=== PATIENT | female | born 1955 | race Caucasian/White ===

== ENCOUNTER 2025-04-05 18:14 | Emergency (ER) | payer BC, SELFPAY ==
[2025-04-05 18:16] VITALS: BP 147/88
[2025-04-05 21:24] VITALS: BP 159/85
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
[2025-04-05] MEDS: ELIQUIS 10 MG PO (22:56)
[2025-04-05 23:09] VITALS: BP 155/82
== END 2025-04-05 23:09 | disposition home or self-care (01) ==
LOC: EMR 18:14
PROVIDERS: EMERGENCY PHYSICIAN Emergency Medicine
DX: I82.412 Acute embolism and thrombosis of left femoral vein (principal); I82.432 Acute embolism and thrombosis of left popliteal vein; I82.442 Acute embolism and thrombosis of left tibial vein; I71.9 Aortic aneurysm of unspecified site, without rupture; E78.00 Pure hypercholesterolemia, unspecified; E03.9 Hypothyroidism, unspecified
CPT/HCPCS: 99284; 93971

== ENCOUNTER 2025-04-13 03:00 | Inpatient (IN) | payer BC, SELFPAY ==
[2025-04-12 20:37] VITALS: BP 190/117
[2025-04-12 21:00] LABS: Hematocrit 36.2 % (37.0-47.0); Hemoglobin 12.1 g/dL (12.0-16.0); Mean Corp Hgb Conc. 33.4 g/dL (33.0-37.0); Mean Corpuscular Volume 93.8 fL (81.0-99.0); Nucleated Red Blood Cells % 0 %; Platelet Count 302 10^3/uL (130-400); Red Cell Dist. Width 13.2 % (11.5-14.5)
[2025-04-12 21:21] LABS: ALT (SGPT) 14 U/L (0-35); AST (SGOT) 20 U/L (14-36); Albumin 4.5 g/dl (3.5-5.0); Alkaline Phosphatase 81 U/L (38-126); Blood Urea Nitrogen 16 mg/dl (7-17); Calcium 9.7 mg/dl (8.4-10.2); Carbon Dioxide 25 mmol/L (22-30); Chloride 107 mmol/L (98-107); Glucose 118 mg/dl (70-99); Potassium 3.8 mmol/L (3.5-5.1); Sodium 138 mmol/L (135-145); Total Protein 7.2 g/dl (6.3-8.2); eGFR > 60.00
[2025-04-12 21:32] LABS: Troponin I < 0.012 ng/ml
[2025-04-12 22:02] VITALS: BP 179/104
[2025-04-12 22:08] VITALS: BMI 29.6
[2025-04-12 22:38] VITALS: BP 165/92
[2025-04-12 23:00] VITALS: BP 162/101
[2025-04-13] VITALS (11 sets, daily range): BP systolic 126–163; BP diastolic 75–94
[2025-04-13 00:41] LABS: APTT 40.6 Sec (23.4-35.0)
[2025-04-13] MEDS: HEPARIN 7100 UNITS IV (01:23)
[2025-04-13] MEDS: HEPARIN 25000 UNITS/250 ML IV ×2 (01:25→18:08)
--- NOTE | 2025-04-13 01:46 | ED.GENMED ---
History of Present Illness
General
Chief Complaint: DVT/Possible Blood Clot
Source: patient, spouse and family
Exam Limitations: none
Time Seen by Provider: 04/12/25 23:06
Nursing documentation reviewed up to this point in time: agreed with
History of Present Illness
History of Present Illness:
61-year-old female presenting to the emergency department today with concerns of worsening and ongoing discomfort to the left leg radiating into the left lower abdomen. Recently diagnosed with DVT of the left leg 7 days ago started on Eliquis.
Symptoms have been ongoing and seemingly progressive. Denies specific chest pain or shortness of breath. Did have some episodes of lightheadedness over the past few days. Denies any recent trauma surgery immobilization
Past History
Past History
ED Past Medical History: Other (Surveillance of an aortic aneurysm, hypercholesterolemia thyroid)
Social History
Tobacco: Non-smoker
Alcohol: None
Drug: None
Personal:
Living: with family
Review of Systems
Review of Systems
Allergies reviewed?: Yes
All Other Systems: ROS reviewed and negative except as documented in HPI and ROS
Phy Exam
Physical Exam
Physical Exam:
GENERAL: Alert , in no apparent distress
EYE: pupils equal and reactive
NECK: Supple, no significant adenopathy.
ENT: o/p clr, mmm.
CARDIAC: Regular rate and rhythm .
LUNGS: Clear breath sounds bilaterally, no acute respiratory distress, no wheezes/rales/rhonchi
ABDOMEN: Soft, without focal tenderness, no r/g, no cvat
NEUROLOGICAL: Alert and oriented, no focal neuro deficits
SKIN: Warm and dry, skin intact.
MUSCULOSKELETAL: Significant swelling throughout the left lower EXTR some redness discoloration to the left thigh. Dorsalis pedis and posterior tibialis pulses are palpable. Vague discomfort to the left lower quadrant of the abdomen., well
perfused.
PSYCH: Normal and appropriate interaction.
Course
Orders/Labs/Results
Orders:
Orders
04/12/25 20:37
Electrocardiogram (*1) Urgent
Reason for Study: Chest Pain
EKG- Treatment ONCE
04/12/25 20:51
Complete Blood Count/With Diff Urgent
04/12/25 20:52
Comprehensive Metabolic Panel Urgent
Troponin I Urgent
04/13/25 00:06
CT Abd/Pel (IV only)-DH only Urgent
Comment:
Reason For Exam: Left leg DVT, liam;l for abdominal ext, Venogramleg
04/13/25 00:10
Heparin 7,100 units IV NOW STA
Nursing to Place Non Medication Order As Directed
Physician Order: PTT 6 hours after initial start of Heparin infusion
04/13/25 00:15
Heparin 44202 Units/250 ml 25,000 units in 250 ml IV PER PROTOCOL
Weight to be used for heparin protocol in kilograms (kg):: 88.4
Protocol:: DVT/PE
PTT Goal Range to be used:: PTT 73 to 111 seconds
Order type:: Initial
INITIAL Infusion Dose (UNITS/KG/hr) & then follow protocol:: 18 units/kg/hr
Infusion Dose in UNITS/hr & then follow protocol (UNITS/hr):: 1,600
INFUSION RATE in mL/hr & then follow protocol (mL/hr):: 16
For DVT/PE algorithm, re-bolus for low PTT?: Yes
PTT less than or equal to 64 seconds:: Re-bolus 80 units/kg (max 10,000units). Increase by 400 units/hr
(+ 4mL/hr)
PTT 64.1 to 72.9 seconds:: Re-bolus 40 units/kg (max 5,000 units). Increase by 200 units/hr
(+ 2mL/hr)
PTT 73 to 111 seconds:: Target Range. No change in rate.
PTT 111.1 to 130.9 seconds:: Decrease rate by 200 units/hr (- 2 mL/hr)
PTT 131 to 199.9 seconds:: HOLD for 1 hr. Then decrease by 300 units/hr (- 3mL/hr)
PTT greater than or equal to 200 seconds:: HOLD for 2 hrs & Notify Provider. Then decrease by 400 units/hr
(- 4mL/hr)
Lab follow-up:: Each change, PTT q6h until 2 consecutive are therapeutic. Then
PTT daily.
04/13/25 00:22
PTT Urgent
Comment: Obtain baseline before beginning heparin infusion if not already collected
04/13/25 01:18
Heparin 7,100 units IV PRN PRN
04/13/25 01:19
Heparin 3,500 units IV PRN PRN
Abnormal Lab Results
04/12/25 04/12/25 04/13/25
20:51 20:52 00:22
RBC 3.86 L 10^6/uL
(4.20-5.40)
Hct 36.2 L %
(37.0-47.0)
MCH 31.3 H pg
(27.0-31.0)
APTT 40.6 H Sec
(23.4-35.0)
Glucose 118 H mg/dl
(70-99)
04/12/25 20:51
04/12/25 20:52
Vital Signs
Initial and Last Documented VS:
Initial Vital Signs
Temp Pulse Resp BP Pulse Ox
98.9 F 94 16 190/117 98
04/12/25 20:37 04/12/25 20:37 04/12/25 20:37 04/12/25 20:37 04/12/25 20:37
Last Documented Vital Signs
Temp Pulse Resp BP Pulse Ox
98.9 F 86 20 163/82 97
04/12/25 20:37 04/13/25 00:00 04/13/25 00:00 04/13/25 00:00 04/13/25 00:00
MDM/Problems Addressed
MDM/Problems Addressed:
69-year-old female presenting to the emergency department today with concerns of ongoing symptoms to the left lower extremity. Was diagnosed with DVT that was extensive to the left leg 1 week ago and started on Eliquis. She taking this as
prescribed. Concerning the patient's extensive DVT and ongoing worsening symptoms Case was discussed with vascular surgery recommending CT scan for further assessment. They recommended the patient be n.p.o. and started on heparin. CT venogram
does show extension of clot into the abdomen and the iliac vessels with possibility May Steel syndrome. Patient stable throughout ER stay patient will be admitted for vascular consultation.
*Pulse Oximetry
SaO2: 97
Oxygen Mode of Delivery: Room air
Patient hypoxic: no (97)
*Critical Care Note
Total Time (30-74mins, 75-104mins- exclusive of procedures): Not Applicable
ED Attending Note
-
Portions of this chart may have been created with voice recognition software.� Occasional wrong word or��sound alike� substitutions may have occurred due to the inherent limitations of voice recognition software.
Discharge Plan
Departure
Patient Disposition: Admit
Date of Disposition: 04/13/25
Time of Disposition: 01:49
Admit to: Telemetry
Admit to doctor: [place]
Presentation/result/management discussed w/ accepting MD/DO: Hospitalist
Patient with high blood pressure during this ER visit?: No
Condition: Good
Covid-19: Not Applicable
Discharge Problem:
DVT (deep venous thrombosis)
Prescriptions:
No Action
levothyroxine [Synthroid] 75 mcg Tablet
75 mcg PO DAILY
alprazolam [Xanax] 0.5 mg Tablet
0.25 mg PO DAILYPRN PRN (Reason: anxiety)
rosuvastatin 10 mg Tablet
10 mg PO DAILY
acetaminophen [Tylenol Extra Strength] 500 mg Tablet
1,000 mg PO DAILYPRN PRN (Reason: mild pain)
calcium carbonate [Calcium 600] 600 mg calcium (1,500 mg) Tablet
1,200 mg PO DAILY
ibuprofen 200 mg Tablet
400 mg PO DAILYPRN PRN (Reason: mild pain)
escitalopram oxalate 10 mg Tablet
5 mg PO HS
coenzyme Q10 [CoQ-10] 100 mg Capsule
100 mg PO DAILY
cholecalciferol (vitamin D3) 62.5 mcg (2,500 unit) Capsule
2,500 mcg PO DAILY
biotin 5,000 mcg Tablet,Chewable
5,000 mcg PO DAILY
Eliquis DVT-PE Treat 30D Start 5 mg (74 tabs) tablets,dose pack
5 mg PO BID
Referrals:
UNKNOWN - PT DOES,NOT KNOW [Family Provider]
Interventions
Interventions:
*Risk Screen - Suicide Last Done: 04/12/25 20:37
*Neglect/Abuse Screening Last Done: 04/12/25 20:37
ED- Cardiac Assessment Last Done: 04/12/25 22:09
ED- Pulmonary Assessment Last Done: 04/12/25 22:09
ED-Peripheral Vascular Assessment Last Done: 04/12/25 22:09
ED-Skin Assessment Last Done: 04/12/25 22:09
Discharge Date and Time
Print Language: [id number]
--- NOTE | 2025-04-13 02:33 | HPS.HSE ---
Family Physician
-
Family Physician: NOT KNOW UNKNOWN - PT DOES
Chief Complaint
-
LLE Pain / Swelling
History of Present Illness
Patient is a 69y F with PMH significant for dilated aortic root / aortic insufficiency who presents to ED complaining of LLE pain and swelling. Patient initially noted these symptoms about one week ago. She was seen in the ED on 04/05 and found
to have LLE DVT. Patient was discharged on Eliquis and has been taking it since that time. She notes no improvement in symptoms. She reports some increase in swelling and discomfort since that time. Patient returned to the ED this evening for
further evaluation.
Patient denies any recent travel, plane ride / car ride, surgery, trauma, injury, etc.
No personal history of prior DVT / PE. Her mother had a DVT s/p surgery once.
Patient states that she recently started riding a stationary exercise bicycle. No other changes in activity, new medications, etc.
Medical History
Past Medical History
Past Medical History: Reports Other
Additional Past Medical History:
Dilated Aortic Root / Aortic Insufficiency
Hypothyroidism
Anxiety / Depression
Past Surgical History: Reports None
Social History
Tobacco: Non-smoker
Alcohol: Occasional
Drug: None
Family History
Family History: Other (Mother: DVT (post-surgery))
Allergies / Home Medications
Allergies reflects when Allergies were last updated in [employer].
Home Medications with original date entered in [employer]
Allergy/Medication List:
Allergies
Allergy/AdvReac Type Severity Reaction Status Date / Time
No Known Allergies Allergy Verified 04/12/25 20:37
Home Medications
acetaminophen 500 mg tablet (Tylenol Extra Strength) 1,000 mg PO DAILYPRN PRN mild pain 04/05/25
alprazolam 0.5 mg tablet (Xanax) 0.25 mg PO DAILYPRN PRN anxiety 04/05/25
biotin 5,000 mcg chewable tablet 5,000 mcg PO DAILY 04/05/25
calcium carbonate (Calcium 600) 1,200 mg PO DAILY 04/05/25
cholecalciferol (vitamin D3) 62.5 mcg (2,500 unit) capsule 2,500 mcg PO DAILY 04/05/25
coenzyme Q10 100 mg capsule (CoQ-10) 100 mg PO DAILY 04/05/25
escitalopram oxalate 10 mg tablet 5 mg PO HS 04/05/25
ibuprofen 200 mg tablet 400 mg PO DAILYPRN PRN mild pain 04/05/25
levothyroxine 75 mcg tablet (Synthroid) 75 mcg PO DAILY 04/05/25
rosuvastatin 10 mg tablet 10 mg PO DAILY 04/05/25
apixaban 5 mg (74 tabs) tablets in a dose pack (Eliquis DVT-PE Treat 30D Start) 5 mg PO BID 04/13/25
Review of Systems
-
History Source: Patient
A 12 point ROS was completed and negative except as noted: Yes
Constitutional: Denies Fever or Chills
Respiratory: Denies Cough or Trouble Breathing
Cardiac: Denies Chest Pain or Palpitations
Abdomen/GI: Denies Abdominal Pain, Nausea, Vomiting or Diarrhea
Musculoskeletal: Reports Muscle Pain and Edema
Neurological: Denies Dizzy or Headache
Physical Exam
Vital Signs
Vital Signs
Temp Pulse Resp BP Pulse Ox
98.9 F 86 20 163/82 97
04/12/25 20:37 04/13/25 00:00 04/13/25 00:00 04/13/25 00:00 04/13/25 01:50
Physical Exam
General: Other (69y F in no acute distress.)
HEENT: Moist mucous membranes and PERRLA
Respiratory: Clear; No Wheezes, Rales or Rhonchi
Cardiac: S1/S2, Regular Rhythm and Murmur (II/ OMAR)
GI: Soft, Non Tender, Non Distended and Normal Bowel Sounds
Musculoskeletal: Other (LLE 2+ pitting edema with calf tenderness.)
Neuro: AO x 3
Laboratory Results
-
04/12/25 20:51
04/12/25 20:52
Laboratory Results
APTT 40.6 Sec (23.4-35.0) H 04/13/25 00:22
Total Bilirubin 0.5 mg/dl (0.2-1.3) 04/12/25 20:52
AST 20 U/L (14-36) 04/12/25 20:52
ALT 14 U/L (0-35) 04/12/25 20:52
Alkaline Phosphatase 81 U/L (38-126) 04/12/25 20:52
Troponin I < 0.012 ng/ml 04/12/25 20:52
Impression/Plan
-
A/P: Patient is a 69y F with PMH significant for hypothyroidism and aortic insufficiency who presents to ED complaining of persistent LLE pain and swelling after recent DVT diagnosis.
LLE DVT
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
- Admit for further evaluation and treatment.
- IV Heparin for now.
- Vascular surgery evaluation for additional options including catheter thrombolysis / eventual iliac vein stenting / etc.
- Follow for improvement in symptoms.
Hypothyroidism
- Stable. Continue usual T4 supplementation.
Anxiety / Depression
- Stable. Continue escitalopram.
Code Status: Full
--- NOTE | 2025-04-13 07:25 | CON.VAS ---
Addendum entered and electronically signed by Samy Ellis MD 04/13/25 09:22:
Seen and examined with MARY Argueta. Agree with findings as noted below. Patient developed acute left lower extremity swelling and discomfort about 1-1/2 to 2 weeks ago. She was seen in the emergency room, DVT diagnosed and started on anticoagulation.
She notes the symptoms seem to begin after she was on a stationary bicycle. Denies any recent major surgeries, recent illnesses, sedentary lifestyle or long car rides or airplane trips. No orthopedic issues or traumas. Symptoms got worse
prompting her to come back to the ER yesterday. Found to have more extensive DVT, and at my behest CT venogram was ordered demonstrating extensive iliofemoral DVT. Patient denies any history of intracranial bleeds, strokes, tumors, GI bleeds,
major recent surgeries. No additional contraindications to thrombolysis. Patient denies any chest pain or shortness of breath either with or without exertion.
She does note currently the swelling and discomfort. And she notes when she stands her leg gets tired.
No personal history of DVTs. Family history of DVT in her mother but she developed it at the time of coincidental major medical issues. No other genetic risk factors that she is aware of.
On exam/she is awake and alert. Head is normocephalic and atraumatic. Eyes are anicteric. Neck is soft without jugular venous distention. Breathing is unlabored. Abdomen is soft. Left thigh and calf are swollen, but compartments all soft. The
tissues are all soft. No phlegmasia. Feet are both warm. No rubor, no ulcerations.
CT venogram reviewed by me. There appears to be extensive iliofemoral thrombus with what appears to be a significant May Thurner compression of the left iliac vein between the right iliac artery and the spine.
Duplex reviewed also by me.
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 Discussed with patient management. Discussed first-line of anticoagulation. Discussed with her based on ATTRACT trial
subset, there may be benefit in iliofemoral patient population for thrombolysis or clot extraction to in order to mitigate post thrombotic syndrome occurrence. Discussed catheter directed thrombolysis with subsequent angioplasty/stenting of
residual May-Thurner. Discussed alternatively single session clot extraction or clot retrieval with possible need for catheter directed thrombolysis in addition. Discussed regardless stenting of May Thurner syndrome. Discussed with her procedural
aspects and anticipated outcome/recovery. Discussed risks including but not limited to bleeding, systemic bleeding, infection, PE or additional clot embolization or development, recurrent clotting or thrombosis, need for ICU monitoring possibly,
need for additional procedures, stent migration (cardiac migration). She understands all these things and wishes to proceed. Will add to schedule for today for venography and venous thrombectomy/venous thrombolysis, with likely intravascular
ultrasound intraoperatively as well as likely angioplasty/stenting of iliac vein compression.
Original Note:
Consultation
Consultation Request
Date/Time Consultation Performed: 04/13/2025 0730
Requesting Provider: Hospitalist
Performing Provider: Yajaira Argueta, MARY-C for Samy Ellis M.D.
Reason for Consultation: Left lower extremity swelling/DVT
Medical History
-
Chief Complaint: Left lower extremity swelling
History of Present Illness:
This is a 69-year-old female with significant past medical history of hypothyroidism and aortic insufficiency who initially presented to [facility] on 04/05/2025 with reports of acute onset of left lower extremity swelling, ED evaluation was
positive for occlusive DVT throughout the left common femoral vein, femoral vein, popliteal vein, peroneal vein, and posterior tibial vein with nonocclusive thrombus at the greater saphenous vein. She indicates prior to this initial diagnosis on
04/05/2025 she had not undergone prolonged travel or long periods of sedentary activity. She endorses the only thing that was new was that she had received a stationary bike and was increasing in her exercise program but this was only roughly 30
minutes/day for 3 days prior to swelling. She was discharged from the ED on oral anticoagulation of Eliquis. She notes since initial diagnosis her swelling did not decrease, and then yesterday she noted a sensation of increased tenseness to her
left lower extremity accompanied with intermittent feeling of lightheadedness prompting her to seek ED evaluation. She endorses that she has not missed any doses of her Eliquis since initiation. She denies personal history of DVT or prior lower
extremity swelling. However, endorses her mother had a DVT following surgery. Denies chest pain, shortness of breath, or dyspnea on exertion. Denies prior history of vascular surgical intervention. Denies claudication or rest pain. Endorses an
active lifestyle.
Past Medical History
Past Medical History: Hypothyroidism, Valvular Disease (Dilated Aortic Root / Aortic Insufficiency) and Other (Anxiety/depression)
Past Surgical History: None
Social History
Tobacco: Non-Smoker
Alcohol: Occasional
Family History
Family History: Other (Mother with DVT postsurgery)
Allergies / Home Medications
Allergy/AdvReac Type Severity Reaction Status Date / Time
No Known Allergies Allergy Verified 04/12/25 20:37
�Medication �Instructions �Recorded �Confirmed �Type
acetaminophen 500 mg tablet 1,000 mg PO DAILYPRN PRN mild pain 04/05/25 04/13/25 History
(Tylenol Extra Strength)
alprazolam 0.5 mg tablet (Xanax) 0.25 mg PO DAILYPRN PRN anxiety 04/05/25 04/13/25 History
biotin 5,000 mcg chewable tablet 5,000 mcg PO DAILY 04/05/25 04/13/25 History
calcium carbonate (Calcium 600) 1,200 mg PO DAILY 04/05/25 04/13/25 History
cholecalciferol (vitamin D3) 62.5 2,500 mcg PO DAILY 04/05/25 04/13/25 History
mcg (2,500 unit) capsule
coenzyme Q10 100 mg capsule 100 mg PO DAILY 04/05/25 04/13/25 History
(CoQ-10)
escitalopram oxalate 10 mg tablet 5 mg PO HS 04/05/25 04/13/25 History
ibuprofen 200 mg tablet 400 mg PO DAILYPRN PRN mild pain 04/05/25 04/13/25 History
levothyroxine 75 mcg tablet 75 mcg PO DAILY 04/05/25 04/13/25 History
(Synthroid)
rosuvastatin 10 mg tablet 10 mg PO DAILY 04/05/25 04/13/25 History
apixaban 5 mg (74 tabs) tablets in 5 mg PO BID 04/13/25 04/13/25 History
a dose pack (Eliquis DVT-PE Treat
30D Start)
Review of Systems
-
History Source: Patient
Constitutional: Reports No Symptoms
EENT: Reports No Symptoms
Respiratory: Reports No Symptoms; Denies Trouble Breathing
Cardiac: Reports No Symptoms
Vascular: Reports Other (Lower extremity swelling)
Abdomen/GI: Reports No Symptoms
: Reports No Symptoms
Musculoskeletal: Reports Edema
Skin: Reports No Symptoms
Neurological: Reports Other (Lightheaded intermittently, now resolved)
Endocrine: Reports No Symptoms
Physical Exam
Vital Signs
Temp Pulse Resp BP Pulse Ox
98.1 F 81 18 158/84 96
04/13/25 03:30 04/13/25 03:30 04/13/25 03:30 04/13/25 03:55 04/13/25 03:30
Lab Results
Troponin I < 0.012 ng/ml 04/12/25 20:52
Physical Exam
General: No Apparent Distress
HEENT: Normocephalic, Anicteric and Atraumatic
Respiratory: Non Labored Respirations
Cardiac: Negative JVD
GI: Soft, Non Tender and Non Distended
Musculoskeletal: Edema (+3 nonpitting edema left lower extremity from thigh to to foot, compartments are soft, nontense)
Skin: Warm
Neuro: AO x 3
Pulses: Bilateral Femoral: +2 and Bilateral Dorsalis Pedis: +2
Assessment / Plan
-
Assessment: 69-year-old female with extensive left lower extremity DVT
Plan:
Given common femoral vein involvement and suspected May Thurner compression recommending surgical intervention of left lower extremity venogram, possible lysis catheter placement versus endovascular mechanical thrombectomy, and possible stent and
balloon angioplasty. Plan for OR today.
N.p.o.
Continue heparin infusion for anticoagulation
Plan relayed to hospitalist via [place] text.
[2025-04-13 07:58] LABS: APTT > 200.0 Sec (23.4-35.0)
[2025-04-13 08:05] LABS: Hematocrit 35.8 % (37.0-47.0); Hemoglobin 12.0 g/dL (12.0-16.0); Mean Corp Hgb Conc. 33.5 g/dL (33.0-37.0); Mean Corpuscular Volume 93.7 fL (81.0-99.0); Platelet Count 313 10^3/uL (130-400); Red Cell Dist. Width 13.2 % (11.5-14.5)
[2025-04-13] MEDS: CRESTOR 10 MG PO (08:20)
[2025-04-13] MEDS: SYNTHROID PO (08:49)
[2025-04-13 10:30] LABS: APTT 84.5 Sec (23.4-35.0)
[2025-04-13 10:54] LABS: Blood Urea Nitrogen 11 mg/dl (7-17); Calcium 8.9 mg/dl (8.4-10.2); Carbon Dioxide 23 mmol/L (22-30); Chloride 109 mmol/L (98-107); Estimated Creatinine Clearance 104 ml/min; Glucose 100 mg/dl (70-99); Potassium 4.0 mmol/L (3.5-5.1); Sodium 139 mmol/L (135-145); eGFR > 60.00
--- NOTE | 2025-04-13 13:10 | W.PN.HOSP.TC ---
Today's Communication/Plan
-
Lytic therapy.
Assessment / Plan
Assessment / Plan
69 y/o female with LE edema for 1 week. Patient was seen in the ER on 04/05/2025 and was found to have left lower extremity DVT was discharged on Eliquis. She noted no improvement in symptoms.
Ultrasound as on-extensive DVT in the greater saphenous veins/saphenofemoral junction/occlusive thrombus throughout the left common femoral vein, femoral vein, popliteal vein, peroneal vein and posterior tibial vein.
Echo 12/26/2024-normal LV size, mildly increased wall thickness and normal systolic function. EF 65%. Grade 1 diastolic dysfunction. Normal RV size and function. Mildly enlarged LA. Mildly enlarged RA. Structurally normal MV. Structurally
abnormal aortic valve with. Trivial TR.
CVS: S1-S2 normal, EDM aa
Chest: CTA B/L
Abdomen: Soft, NT / Bowel sounds present
Extremities: Edema left lower extremity, left foot slightly cold. Pulses palpable
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
# Left lower extremity DVT
Continue IV heparin
Keep n.p.o. for lytic therapy per vascular
Vascular surgery consulted
Needs further outpatient workup with hematology oncology
Age-appropriate malignancy screening recommended to pt.
She is due for mammogram next Thursday. She has only done Cologuard test years ago. Advised to get colonoscopy
# Hypothyroidism-continue levothyroxine 75 mcg daily
# Hyperlipidemia-continue statin
# Anxiety depression-continue Lexapro
# Mild to moderate AI
# Full code
Discussed with nursing at bedside
D/W Vascular
Part of this note was created using voice recognition system. Occasional wrong word or��sound alike� substitutions may have inadvertently occurred due to the inherent limitations of voice recognition software. If noted kindly bring it to my
attention for correction.
Anticipated Discharge: 24 - 48 hours
Subjective/Interval History
-
Date of Service: April 13, 2025
Objective Data
-
Labs:
Laboratory Results
04/13/25 04/13/25 04/13/25
07:13 09:58 16:30
WBC 6.6
Hgb 12.0
Hct 35.8 L
Plt Count 313
APTT > 200.0 H* 84.5 H Pending
Sodium 139
Potassium 4.0
Chloride 109 H
Carbon Dioxide 23
BUN 11
Creatinine 0.6
Glucose 100 H
Calcium 8.9
Vital Signs:
Vital Signs
Temp Pulse Resp BP Pulse Ox
98.2 F 79 16 160/92 96
04/13/25 07:40 04/13/25 07:40 04/13/25 07:40 04/13/25 07:40 04/13/25 07:40
--- NOTE | 2025-04-13 14:19 | CM ---
Met with patient at bedside
Family Physician verified: SURY Tavarez; Address: [address] [place] [address] [address], [place] [id number];
Pharmacy verified: [facility] @ [address] [place] [address] [place]
Patient lives w/ ; split level home; no steps to enter; 6 steps between levels; railings on stairs; powder room lower level; upper level bath has tub w/ shower
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
NO DME
NO SNF or Home Health utilization history
will transport home
Plan: discharge to home when medically stable; no needs anticipated
[2025-04-13 15:51] LABS: ACT-LR - POC 203 Seconds (116-155)
[2025-04-13 15:58] LABS: ACT-LR - POC 250 Seconds (116-155)
--- NOTE | 2025-04-13 17:36 | OR.RPT ---
Operative Report
Operative Report
PROCEDURE DATE: 04/13/2025
Preoperative diagnosis:
1. Extensive left lower extremity DVT including iliofemoral DVT.
2. 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
Postoperative diagnosis: Same
Procedure:
1. Duplex assisted cannulation left popliteal vein.
2. Ascending venogram left lower extremity and central venogram.
3. Percutaneous mechanical thrombectomy left iliac veins, common femoral/femoral/popliteal veins with Inari ClotTreiver thrombectomy device.
4. Intravascular ultrasound left iliac veins/common femoral/femoral veins.
5. Placement of self-expanding Wallstent with 18mm x 90mm stent in left common iliac vein for May Thurner severe stenosis.
6. Supervision and interpretation.
Surgeon: Caleb
Ct Technician: None
Complications: None
Anesthesia: Local, sedation
Fluoroscopy:
23.6 min
152 mGy
43.99 gy.cm2
Indications for procedure:
Patient with acute/subacute extensive left lower extremity DVT including extensive iliofemoral thrombosis. Risk/benefits/alternatives of venography and attempted mechanical thrombectomy or thrombolysis were fully discussed with the patient. She
understood all wished to proceed.
Description of procedure:
Patient was identified, brought to the operating room. Placed on the table in the prone position. After the adequate administration of anesthesia, the patient was prepped and draped in the standard surgical fashion. A standard preoperative
timeout was undertaken and everybody was in agreement with the plan.
The left popliteal vein was accessed using a micropuncture kit under direct duplex ultrasound guidance in the standard fashion. Micropuncture sheath was advanced and ascending venogram was performed to confirm venous access. Next I exchanged over
a 0.035 inch wire for a 6 [place] sheath. I now performed formalized ascending venography. This demonstrated patent popliteal, femoral, common femoral veins. There were areas of mild nonocclusive thrombus but no fully occlusive thrombus in those
segments. I then advanced a glide catheter over a floppy angled Glidewire to the common femoral vein. Ascending venography and central venogram now demonstrated patent common femoral vein but then occlusion of the iliac vein within the external
iliac vein. Now using a flopping of hydrophilic wire and a glide catheter, I was able to gain wire access up into the IVC. Venogram confirmed I was in the IVC and that the IVC was nicely patent. I now exchanged for a Amplatz wire. Of note the
patient was maintained on a heparin drip, but now additional bolus of heparin was given to drive the ACT above 250.
At this point over the Amplatz wire I exchanged the 6 [place]ones[place] sheath for the dilator from the Inari ClotTriever system. The subcutaneous tract was dilated, and then we exchanged for the accompanying sheath. Once the sheath was advanced, the tip of
the sheath basket was advanced out per the normal protocol, and the introducer removed. Now with the sheath in place, under fluoroscopy we confirmed that the basket was indeed open. Now the Inari ClotTriever catheter was advanced under direct
fluoroscopy through the femoral venous system and then into the iliac vein system. There was mild hold-up or difficulty advancing it through the proximal common iliac vein (more central vein) just proximal to the confluence likely secondary to the
May Thurner compression. However I was able to advance it through. Next the coring element was exposed and prepared in the standard fashion. Once this was readied, it was maintained at a 12 o'clock position and withdrawn thereby mechanically
collecting thrombus/clot. It was removed from the sheath and the clot that was noted within it was removed from the basket and the coring device. Next the catheter was reinserted and then the same sequence was repeated now at the 3 o'clock
position, and subsequently at the 6:00 and 9:00 positions as well. Each time clot was retrieved through the basket and removed on the back table. And then the catheter was reinserted. After the fourth time/quadrant, ascending venogram was
obtained. Demonstrated now patent flow through the femoral system as well as the iliac veins. There was still hold-up noted at the point of compression from the May Thurner. Therefore at this point I inserted an intravascular ultrasound probe.
Complete intravascular ultrasound assessment was performed. This demonstrated no significant residual thrombus in the popliteal/femoral/common femoral veins. The external iliac vein also was nicely patent with no significant thrombus. The common
iliac vein had some mild mural associated thrombus just peripheral to the severe pancake like compression at the May-Thurner point. Beyond here the vena cava was widely patent. At this point using both fluoroscopy and the intravascular ultrasound,
I marked the positions for stent to be placed. I felt that at this point any residual mural associated thrombus in that vicinity would be trapped nicely by the stent. Therefore I now used a Wallstent which was an 18 mm x 90 mm stent. Note size
measurements were undertaken with intravascular ultrasound prior. This was then unsheathed initially once I was satisfied with the positioning (the more central portion jutted a few millimeters into the vena cava intentionally), I then completely
unsheathed the stent. Now I used an 18 mm [place] balloon and inflated to nominal pressures along the stent to fully expand it. Completion venogram now demonstrated excellent flow through the iliac venous system with no hold-up and no evidence of
residual thrombus. Intravascular ultrasound assessment confirmed that and confirmed good wall apposition of the stents. At this point I was very satisfied. Wires and catheters were withdrawn. A pursestrings 0 silk suture was placed around the
sheath entry site. This was then tied down as the sheath was withdrawn. Manual pressure was also applied to the puncture site. Hemostasis was fully achieved. Compression wraps were then applied. The patient tolerated the procedure well. She
was transported to recovery room in stable condition.
[2025-04-13] MEDS: DILAUDID 0.25 MG IV ×2 (17:59→18:14)
[2025-04-13 18:33] LABS: APTT > 200 Sec (23.4-35.0)
[2025-04-13] MEDS: NSS 1000 IV (20:00)
[2025-04-13] MEDS: LEXAPRO 5 MG PO (21:47)
[2025-04-14 03:15] LABS: APTT 118.4 Sec (23.4-35.0)
[2025-04-14 03:54] VITALS: BP 128/78
[2025-04-14] MEDS: SYNTHROID 75 MCG PO (05:05)
[2025-04-14] MEDS: TYLENOL 650 MG PO (05:08)
[2025-04-14] MEDS: LOW STRENGTH ASPIRIN 81 MG PO (07:17)
[2025-04-14] MEDS: CRESTOR 10 MG PO (07:17)
[2025-04-14 07:50] VITALS: BP 140/77
--- NOTE | 2025-04-14 08:56 | W.PN.VS ---
Today's Communication / Plan
-
Patient seen and examined at bedside with Dr. Zachery El III, below plan reviewed with attending.
Assessment/Plan
-
Assessment: 69 year old female POD#1 Duplex assisted cannulation left popliteal vein. Ascending venogram left lower extremity and central venogram. Percutaneous mechanical thrombectomy left iliac veins, common femoral/femoral/popliteal veins with
Inari ClotTreiver thrombectomy device. Intravascular ultrasound left iliac veins/common femoral/femoral veins. Placement of self-expanding Wallstent with 18mm x 90mm stent in left common iliac vein for January Thurner severe stenosis for DVT and January
Thurner Compression
Plan:
Ok to transition to OAC from heparin infusion from a vascular perspective
F/u placed in DC instructions
Recommend continued compression to left lower extremity via yakelin wrap or compression stocking to help with edema
We will sign off, please call with questions or concerns
Subjective Data
-
Date of Service: April 14, 2025
Patient seen and examined at bedside, reports vast improvement in left lower extremity and that she feels over all much better.
Objective Data
-
Vital Signs
Temp Pulse Resp BP Pulse Ox
98.3 F 69 16 140/77 96
04/14/25 07:50 04/14/25 07:50 04/14/25 07:50 04/14/25 07:50 04/14/25 07:50
Intake and Output
04/13/25 04/14/25 04/15/25
06:59 06:59 06:59
Intake Total 756 / 756
Output Total 750 / 750
Balance
Intake:
Oral fluids 240 / 240
IV fluids (Total) 516 / 516
heparin gtt
normosol 100 / 100
Output:
Urine, Voided 750 / 750
Other:
Number of approximated MODERATE 3
amounts of urine
Calcium 8.9 mg/dl (8.4-10.2) 04/13/25 07:13
Total Bilirubin 0.5 mg/dl (0.2-1.3) 04/12/25 20:52
AST 20 U/L (14-36) 04/12/25 20:52
ALT 14 U/L (0-35) 04/12/25 20:52
Alkaline Phosphatase 81 U/L (38-126) 04/12/25 20:52
Total Protein 7.2 g/dl (6.3-8.2) 04/12/25 20:52
Albumin 4.5 g/dl (3.5-5.0) 04/12/25 20:52
Physical Exam
-
No apparent distress, rest in bed comfortably
No tachycardia
No dyspnea on room air
LLE swelling improved greatly, yakelin CDI and intact, left foot warm
[2025-04-14 09:46] LABS: Hematocrit 38.7 % (37.0-47.0); Hemoglobin 12.7 g/dL (12.0-16.0); Mean Corp Hgb Conc. 32.8 g/dL (33.0-37.0); Mean Corpuscular Volume 94.9 fL (81.0-99.0); Nucleated Red Blood Cells % 0 %; Platelet Count 303 10^3/uL (130-400); Red Cell Dist. Width 13.2 % (11.5-14.5)
[2025-04-14 09:59] LABS: APTT 70.0 Sec (23.4-35.0)
--- NOTE | 2025-04-14 10:25 | CM ---
Reviewed the chart notes. Vascular signed off today. CM continues to be available to patient/family and is monitoring medical plan for needs at discharge.
Plan: Discharge to home when medically stable. No needs anticipated at this time.
[2025-04-14 10:30] LABS: Blood Urea Nitrogen 11 mg/dl (7-17); Calcium 9.1 mg/dl (8.4-10.2); Carbon Dioxide 27 mmol/L (22-30); Chloride 106 mmol/L (98-107); Estimated Creatinine Clearance 89 ml/min; Glucose 105 mg/dl (70-99); Potassium 4.1 mmol/L (3.5-5.1); Sodium 139 mmol/L (135-145); eGFR > 60.00
--- NOTE | 2025-04-14 10:34 | W.PN.HOSP.TC ---
Addendum entered and electronically signed by Mihir Huang MD 04/14/25 15:43:
Dictation- [id number]
Addendum entered and electronically signed by Mihir Huang MD 04/14/25 15:36:
CT without any evidence of acute changes or bleeding
Patient states that she does not have any pain at this point
Continued on heparin drip until 6 PM
Give Eliquis at 6 PM and discharge
Total time including visits, discussions reviewing CAT scan discussion with providers on discharge 33 minutes
Original Note:
Today's Communication/Plan
-
CT scan of the abdomen and pelvis
Ambulate the patient
If CT is okay will switch to Eliquis and possible discharge
Assessment / Plan
Assessment / Plan
69 y/o female with LE edema for 1 week. Patient was seen in the ER on 04/05/2025 and was found to have left lower extremity DVT was discharged on Eliquis. She noted no improvement in symptoms.
Ultrasound as on-extensive DVT in the greater saphenous veins/saphenofemoral junction/occlusive thrombus throughout the left common femoral vein, femoral vein, popliteal vein, peroneal vein and posterior tibial vein.
Echo 12/26/2024-normal LV size, mildly increased wall thickness and normal systolic function. EF 65%. Grade 1 diastolic dysfunction. Normal RV size and function. Mildly enlarged LA. Mildly enlarged RA. Structurally normal MV. Structurally
abnormal aortic valve with. Trivial TR.
CVS: S1-S2 normal, EDM aa
Chest: CTA B/L
Abdomen: RLQ tenderness
Extremities: Edema left lower extremity
# Left lower extremity DVT
May Thurner syndrome
Status post ascending venogram left lower extremity with percutaneous mechanical thrombectomy of left iliac veins, common femoral and popliteal veins intravascular ultrasound and placement of self-expanding Wallstent in the left common iliac vein by
Dr. Ellis 04/13/2025
Age-appropriate malignancy screening recommended to pt.
She is due for mammogram next Thursday. She has only done Cologuard test years ago. Advised to get colonoscopy
Patient was on Eliquis before
After CT scan is done we will switch to Eliquis-5 mg twice daily stat dose per discussion with pharmacy.
Continue aspirin also for the stent per vascular
# Right lower quadrant tenderness and pain-CT scan ordered
# Hypothyroidism-continue levothyroxine 75 mcg daily
# Hyperlipidemia-continue statin
# Anxiety depression-continue Lexapro
# Mild to moderate AI
# Full code
Discussed with pharmacy
Discussed with family at bedside
Part of this note was created using voice recognition system. Occasional wrong word or��sound alike� substitutions may have inadvertently occurred due to the inherent limitations of voice recognition software. If noted kindly bring it to my
attention for correction.
Anticipated Discharge: Within 24 hours
Subjective/Interval History
-
Date of Service: April 14, 2025
Objective Data
-
Labs:
Laboratory Results
04/13/25 04/14/25 04/14/25
20:45 02:52 09:35
WBC 10.3
Hgb 12.7
Hct 38.7
Plt Count 303
APTT Cancelled 118.4 H 70.0 H
Sodium 139
Potassium 4.1
Chloride 106
Carbon Dioxide 27
BUN 11
Creatinine 0.7
Glucose 105 H
Calcium 9.1
Vital Signs:
Vital Signs
Temp Pulse Resp BP Pulse Ox
98.3 F 69 16 140/77 96
04/14/25 07:50 04/14/25 07:50 04/14/25 07:50 04/14/25 07:50 04/14/25 07:50
I&O
04/13/25 04/14/25 04/15/25
06:59 06:59 06:59
Intake Total 756 / 756
Output Total 750 / 750
Balance 6 / 6
[2025-04-14] MEDS: OMNIPAQUE 50 ML PO (11:09)
[2025-04-14 11:27] VITALS: BP 133/73
[2025-04-14 15:05] VITALS: BP 148/83
--- NOTE | 2025-04-14 15:44 | W.DS.TRANS ---
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
-
Discharge Instructions:
Discharge Diagnosis/Procedures DVT left leg
Hypothyroidism
Aortic valve insufficiency
Anxiety
High cholesterol
Diet As tolerated
Activity No strenuous activity
Driving Restrictions No driving for 48 hours
Instructions:
Stand-Alone Forms: Vascular Surg Discharge Instr
Changes to Home Medications: Yes
Discharge Medications:
DC Medications w/original date entered in [employer]
acetaminophen 500 mg tablet (Tylenol Extra Strength) 1,000 mg PO DAILYPRN PRN mild pain 04/05/25
alprazolam 0.5 mg tablet (Xanax) 0.25 mg PO DAILYPRN PRN anxiety 04/05/25
biotin 5,000 mcg chewable tablet 5,000 mcg PO DAILY Supplement 04/05/25
calcium carbonate (Calcium 600) 1,200 mg PO DAILY Supplement 04/05/25
cholecalciferol (vitamin D3) 62.5 mcg (2,500 unit) capsule 2,500 mcg PO DAILY Supplement 04/05/25
coenzyme Q10 100 mg capsule (CoQ-10) 100 mg PO DAILY Supplement 04/05/25
escitalopram oxalate 10 mg tablet 5 mg PO HS Mental Health/Anxiety 04/05/25
levothyroxine 75 mcg tablet (Synthroid) 75 mcg PO DAILY Thyroid 04/05/25
rosuvastatin 10 mg tablet 10 mg PO DAILY High Cholesterol 04/05/25
apixaban 5 mg tablet (Eliquis) 5 mg PO BID Blood clot prevention/tx #60 tabs 04/14/25
aspirin 81 mg chewable tablet 81 mg PO DAILY Blood clot prevention/tx #0 tabs 04/14/25
Home Medication Changes
new
aspirin 81 mg chewable tablet 81 mg PO DAILY Blood clot prevention/tx #0 tabs 04/14/25
Pending Results: No
--- NOTE | 2025-04-14 17:23 | PTCARENOTE ---
Patient refused lab draw for second PTT after nurse obtain the first lab draw and was called by hematology Ms. Ryan to say lab draw was insufficient. Dr Huang made aware. RN instructed to turn off heparin at 6pm and give Eliquis and [place] patient
home.
[2025-04-14] MEDS: ELIQUIS 5 MG PO (18:00)
== END 2025-04-14 18:25 | disposition home or self-care (01) | DRG 271 ==
LOC: 2 SOUTH 03:00
PROVIDERS: Emergency Medicine; Physician Assistant; ADMITTING PHYSICIAN Hospitalist; ATTENDING PHYSICIAN Hospitalist; CONSULT PHYSICIAN Surgery Vascular Surgery; EMERGENCY PHYSICIAN Emergency Medicine
PROC: B51C1ZZ Fluoroscopy of Left Lower Extremity Veins using Low Osmolar Contrast (ICD-10-PCS; 2025-04-13)
PROC: 06CN3ZZ Extirpation of Matter from Left Femoral Vein, Percutaneous Approach (ICD-10-PCS; 2025-04-13)
PROC: 06CD3ZZ Extirpation of Matter from Left Common Iliac Vein, Percutaneous Approach (ICD-10-PCS; 2025-04-13)
PROC: 067D3DZ Dilation of Left Common Iliac Vein with Intraluminal Device, Percutaneous Approach (ICD-10-PCS; 2025-04-13)
PROC: 06CY3ZZ Extirpation of Matter from Lower Vein, Percutaneous Approach (ICD-10-PCS; 2025-04-13)
PROC: 06CG3ZZ Extirpation of Matter from Left External Iliac Vein, Percutaneous Approach (ICD-10-PCS; 2025-04-13)
DX: I82.442 Acute embolism and thrombosis of left tibial vein (principal); I87.1 Compression of vein; E03.9 Hypothyroidism, unspecified; I35.1 Nonrheumatic aortic (valve) insufficiency; F41.9 Anxiety disorder, unspecified; E78.00 Pure hypercholesterolemia, unspecified; F32.A Depression, unspecified; Z79.01 Long term (current) use of anticoagulants; Z79.890 Hormone replacement therapy; Z79.899 Other long term (current) drug therapy
CPT/HCPCS: 36005; 37187; 37238; 37252; 74177; 75820; 80048; 80053; 84484; 85025; 85027; 85730; 93005; 96374; 96376; 99285; C1725; C1753; C1769; C1876; C1894; Q9967

== ENCOUNTER → 2025-05-05 06:53 | Outpatient (REF) | payer BC, SELFPAY | LOC: RAD 06:53 | PROVIDERS: ATTENDING PHYSICIAN Registered Nurse; FAMILY PHYSICIAN Physician Assistant; OTHER PHYSICIAN Surgery Vascular Surgery | DX: I82.402 Acute embolism and thrombosis of unspecified deep veins of left lower extremity (principal) | CPT/HCPCS: 93971 ==